=== PATIENT | male | born 1945 | race Caucasian/White ===

== ENCOUNTER 2019-08-06 03:34 | Emergency (ER) | payer MEDICARE, SELFPAY ==
--- NOTE | ~2019-08-06 | XR_ITS ---
EXAMINATION: XR chest 2V DATE: 08/06/2019 04:08 INDICATION: Shortness of breath TECHNIQUE: PA and lateral views of the chest were obtained. COMPARISON: Chest radiograph dated 03/28/2016 FINDINGS: Mildly increased interstitial pattern in the bilateral mid and lower lung zones with a few subtle per ipheral Tresa B-lines at the lateral right lower lung zone. No pleural effusion or pneumothorax. Mil d cardiomegaly. Visualized bones and soft tissues are unremarkable. IMPRESSION: 1. Mild increased interstitial pattern in the mid and lower lung zones most likely mild pulmonary [place] with differential including pneumonia. Reviewed, dictated and finalized at location A. IMPRESSION: 1. Mild increased interstitial pattern in the mid and lower lung zones most lik kisha mild pulmonary edema with differential including pneumonia.
--- NOTE | 2019-08-06 03:40 | ECG_ITS ---
Measurements Intervals [place] Rate: 91 P: RI: 0 QRS: -22 QRSD: 85 T: 16 QT: 324 QTc: 400 Interpretive Statements ATRIAL FIBRILLATION VENTRICULAR PREMATURE COMPLEX BORDERLINE ST ABNORMALITY- ANTEROLATERAL LEADS ABNORMAL ECG Electronically Signed On 08-06-2019 8:02:48 CDT by Michael Petersen D.O.
--- NOTE | 2019-08-06 03:45 | ED.SOB ---
HPI - SOB/Dyspnea General Chief Complaint: Shortness of Breath/Dyspnea Stated Complaint: sob Time Seen by Provider: 08/06/19 03:37 Source: RN notes reviewed History of Present Illness HPI Narrative: Patient presents emergency department from home for shortness of breath. Patient states that he has been having increased shortness of breath over the past 4 days. He states is worse with laying flat and exertion. States that this morning he woke up feeling short of breath approximately 1:30 AM. States he had to sit up at that time and he does have a history of anxiety as well and took an alprazolam. Patient is he has a history of mitral regurgitation as well as a history of atrial fibrillation that was recently diagnosed and started on Eliquis. He denies having any fevers or chills chest pain cough abdominal pain or any other symptoms there is no lower extremity edema. Patient states he is currently on Lasix 60 mg twice daily Related Data Home Medications Medication Instructions Recorded Confirmed PNV,calcium 50-qiha-lsnsz acid tablet 03/21/19 [ Vitamin Plus Low Iron] allopurinol 03/21/19 alprazolam 03/21/19 amlodipine 03/21/19 amlodipine 03/21/19 atorvastatin 03/21/19 furosemide 03/21/19 liothyronine mcg 03/21/19 losartan 03/21/19 metformin mg 03/21/19 potassium chloride meq PO 03/21/19 tamsulosin mg PO 03/21/19 apixaban [Eliquis] mg 08/06/19 metoprolol succinate PO 08/06/19 08/06/19 Allergies Allergy/AdvReac Type Severity Reaction Status Date / Time No Known Allergies Allergy Verified 08/06/19 03:52 Review of Systems Review of Systems: Narrative: Gen.: Denies fevers or chills ENT: Denies congestion Respiratory: See HPI CV: Denies chest pain or palpitations GI: Denies abdominal pain nausea, emesis or diarrhea Musculoskeletal: Denies back pain or muscle pain Neuro: Denies numbness, tingling, weakness or focal weakness Skin: Denies rash Except as documented, all other systems reviewed and negative [facility] Past Medical History Medical History Chronic back pain Congestive heart failure Coronary artery disease Diabetes Fractures Arm and leg Heart valve regurgitation Hypercholesterolemia Hypertension Hypothyroidism Sinusitis Surgical History Surgical History (Updated 03/21/19 @ 13:07 by ESSIE Lazaro) H/O Spinal surgery Fusion L3, L4 and L5 Hx of tonsillectomy Social History Social History (Updated 08/06/19 @ 04:07 by Emeka Atkins, DO) Smoking status: Never smoker Exam Narrative: Exam Narrative: APPEARANCE: No acute distress, nontoxic, resting in bed EYES: EOMI HEENT: Normocephalic, atraumatic, OMM RESPIRATORY: No respiratory distress fine crackles throughout the bilateral lung urbano CARDIOVASCULAR: Regular rate and rhythm with grade 3 out of 6 systolic ejection murmur ABDOMINAL: Soft, nontender, nondistended, no rebound or guarding MUSCULOSKELETAl: Moves all extremities. No clubbing, cyanosis 3+ edema the bilateral lower extremities NEURO: Awake and alert. Following commands, speech normal, no focal deficits SKIN:: Warm, dry. 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 This time recommends patient receive Lasix 40 mg x 1 IV agrees with plan for discharge and they will call the patient this morning for follow-up in the office With walking pulse ox in the emergency department with oxygen saturation staying over 93% the entire time Discussed with patient results of workup and diagnosis. Discussed need for follow-up with primary care, proper use of medication, and reasons to return to the emergency department. Patient understands and agrees to current treatment plan Vital Signs Vital signs: Vital Signs Temperature 97.7 F 08/06/19 03:46 Pulse Rate 110 H 08/06/19
[2019-08-06 03:46] VITALS: BP 145/87; PULSE 110; RESP 16; TEMP 36.5; O2SAT 97
[2019-08-06 03:53] LABS: Basophils Percent Auto 0.4 % (0.2-1.2); Eosinophils Absolute Auto 0.2 K/mm3 (0-0.3); Eosinophils Percent Auto 2.2 % (0-4.4); Hematocrit 32.5 % (42.0-52.0); Hemoglobin 10.5 g/dL (14.0-18.0); Immature Granulocyte Absolute 0.04 K/mm3 (0.00-0.031); Immature Granulocyte Percent A 0.5 % (0-0.5); Lymphocytes Absolute Auto 1.14 K/mm3 (0.9-3.2); Lymphocytes Percent Auto 15.3 % (18.3-44.2); Mean Corpuscular HGB Conc 32.3 g/dl (32-36); Mean Corpuscular Hemoglobin 28.2 pg (26-34); Mean Corpuscular Volume 87.4 fl (80-100); Mean Platelet Volume 10.8 fl (7.4-10.4); Monocytes Absolute Auto 0.5 K/mm3 (0.1-0.6); Monocytes Percent Auto 6.6 % (2.6-8.5); Neutrophils Absolute Auto 5.6 K/mm3 (1.3-6.7); Platelet Count Result 183 k/mm3 (150-375); Red Blood Count 3.72 M/mm3 (4.6-6.20); Red Cell Distribution Width 14.8 % (11.5-14.5); White Blood Count 7.4 K/mm3 (4.5-10.0)
[2019-08-06 04:02] LABS: INR 1.3; Prothrombin Time 15.6 Seconds (11.1-14.7)
[2019-08-06 04:03] LABS: Partial Thromboplastin Time 34.4 SECONDS (22.3-36.8)
[2019-08-06 04:04] LABS: Blood Urea Nitrogen 32 mg/dL (9-20); Calcium 9.2 mg/dL (8.4-10.2); Carbon Dioxide 27 mmol/L (22-30); Chloride 103 mmol/L (98-107); Estimated Glomerular Filt Rate 54; Glucose 119 mg/dL (75-110); Potassium 4.3 mmol/L (3.4-5.0); Sodium 139 mmol/L (137-145)
[2019-08-06 04:16] LABS: NT Pro B Type Natriuretic Pept 1310 PG/ML (5-100); Troponin I < 0.012 ng/mL (0.000-0.034)
[2019-08-06 04:25] VITALS: BP 122/68; PULSE 89; RESP 24; O2SAT 96
--- NOTE | 2019-08-06 04:25 | PC.NURSE ---
walking 02 93%
[2019-08-06] MEDS: FUROSEMIDE INJ 40 MG/4 ML VIAL IV PUSH (04:40)
[2019-08-06 05:43] VITALS: BP 129/69; PULSE 91; RESP 23; O2SAT 94
== END 2019-08-06 05:56 | disposition home or self-care (01) ==
PROVIDERS: Emergency Provider Emergency Medicine
DX: I11.0 Hypertensive heart disease with heart failure (principal); I50.9 Heart failure, unspecified; I25.10 Atherosclerotic heart disease of native coronary artery without angina pectoris; E11.9 Type 2 diabetes mellitus without complications; E78.00 Pure hypercholesterolemia, unspecified; E03.9 Hypothyroidism, unspecified; I38 Endocarditis, valve unspecified; Z98.1 Arthrodesis status; Z79.01 Long term (current) use of anticoagulants; Z79.84 Long term (current) use of oral hypoglycemic drugs; I48.91 Unspecified atrial fibrillation; I49.3 Ventricular premature depolarization; R94.31 Abnormal electrocardiogram [ECG] [EKG]
CPT/HCPCS: 36415; 71046; 80048; 83880; 84484; 85025; 85610; 85730; 93005; 96374; 99284; J1940

== ENCOUNTER 2020-04-29 18:00 | Outpatient (RCR) | payer MEDICARE, SELFPAY ==
[2020-01-31 08:54] VITALS: PULSE 75; RESP 14; TEMP 36.5; O2SAT 98
== END 2020-04-29 18:57 | disposition home or self-care (01) ==
LOC: ANHCPREHAB 18:00
DX: Z48.812 Encounter for surgical aftercare following surgery on the circulatory system (principal)
CPT/HCPCS: 93798

== ENCOUNTER 2021-05-15 17:24 | Emergency (ER) | payer MEDICARE, SELFPAY ==
--- NOTE | ~2021-05-15 | CT_ITS ---
EXAMINATION: CT lumbar spine wo con DATE: 05/15/2021 19:52 INDICATION: Low back pain TECHNIQUE: Computed tomography (CT) of the lumbar spine was performed without intravenous contrast. T he dose-length product (DLP) was 1131.85 mGy-cm. Iterative reconstruction was used. COMPARISON: None FINDINGS: There are changes of anterior and posterior fusion from L3 through L5. Bone alignment is no rmal. There is no fracture. There is severe loss of intervertebral disc space height at L2-3 and mode rate loss of disc space height at L1-2. There is a partially imaged cyst of the right kidney measurin g up to 8 cm. There is a 4 mm nonobstructing stone of the right kidney. IMPRESSION: 1. Changes of anterior and posterior fusion from L3 through L5 and severe lumbar spondylosis without acute findings. Reviewed, dictated and finalized at location F. TESTER IMPRESSION: 1. Changes of anterior and posterior fusion from L3 through L5 and severe lumba r spondylosis without acute findings.
--- NOTE | ~2021-05-15 | CT_ITS ---
EXAMINATION: CT brain wo con INDICATION: Head injury COMPARISON: None TECHNIQUE: Standard unenhanced head CT. The dose-length product (DLP) was 605.33 mGy-cm. The mA was a djusted according to patient size. Iterative reconstruction technique was employed. FINDINGS: There is no acute intraparenchymal hemorrhage. No evidence of mass lesion. No evidence of a cute infarction. There is moderate periventricular and subcortical hypodensity probably related to sm all vessel ischemic disease. There is mild prominence of the sulci and ventricles related to cerebral atrophy. Intracranial calcified cerebral atherosclerosis is noted. There are no extra-axial collecti ons. There is no mass effect or midline shift. The orbits and soft tissues are unremarkable. There is mild mucosal thickening of the paranasal sinuses. IMPRESSION: 1. No acute intracranial abnormality. 2. Age related findings. Reviewed, dictated and finalized at location F. ANESTHETIST
[2021-05-15 17:27] VITALS: BP 144/68; PULSE 73; RESP 16; TEMP 35.6; O2SAT 93
--- NOTE | 2021-05-15 18:27 | ED.FALL ---
HPI - Fall General Chief Complaint: Fall Stated Complaint: fall/back pn previous fusion Time Seen by Provider: 05/15/21 17:52 Source: patient and RN notes reviewed History of Present Illness HPI Narrative: 76-year-old male presenting to the emergency department for evaluation of a head injury and back pain after having a fall down a 10 foot embankment. Patient was walking in his yard slipped on some ice and slid down an embankment. Patient states he did strike his head of the right posterior lateral aspect. Patient denies any loss of consciousness. Patient does have abrasions to his right lower knee and some abrasions to his back. Patient does have prior history of L3-L5 fusion and does report some lower back pain today. Related Data Home Medications Medication Instructions Recorded Confirmed torsemide 20 mg PO BID 01/31/20 01/31/20 PNV,calcium 66-[id number]-ncxov acid tablet 05/15/21 [M-Yuliana Plus] allopurinol 05/15/21 05/15/21 atorvastatin 05/15/21 bupropion HCl mg PO 05/15/21 carvedilol 05/15/21 escitalopram oxalate mg 05/15/21 potassium chloride meq PO 05/15/21 sacubitril-valsartan [Entresto] 05/15/21 spironolactone 05/15/21 tamsulosin mg PO 05/15/21 torsemide mg 05/15/21 Allergies Allergy/AdvReac Type Severity Reaction Status Date / Time No Known Allergies Allergy Verified 05/15/21 17:50 Review of Systems Review of Systems: CONSTITUTIONAL: Denies fever, chills, or sweats. EYES: Denies visual changes, redness, or discharge. ENT: Denies rhinorrhea, congestion, sore throat, or otalgia. CARDIOVASCULAR: Denies chest pain, palpitations, or edema. RESPIRATORY: Denies cough or dyspnea. GASTROINTESTINAL: Denies abdominal pain, nausea, vomiting, or diarrhea. GENITOURINARY: Denies dysuria or hematuria. SKIN: Multiple abrasions MUSCULOSKELETAL: Low back pain NEUROLOGIC: Denies headache, numbness, or weakness. PSYCHIATRIC: Denies anxiety or depression. [facility] Past Medical History Medical History (Updated 05/15/21 @ 20:24 by Albert Christianson MD) Chronic back pain Congestive heart failure Coronary artery disease Diabetes Fractures Arm and leg Heart valve regurgitation Hypercholesterolemia Hypertension Hypothyroidism Sinusitis Surgical History Surgical History (Updated 03/21/19 @ 13:07 by ESSIE Lazaro) H/O Spinal surgery Fusion L3, L4 and L5 Hx of tonsillectomy Family History Family History (Updated 01/31/20 @ 08:29 by Yissel Gonzalez RN) Mother Congestive heart failure Thyroid disease Father Prostate carcinoma Sibling CAD (coronary artery disease) Hypertension Social History Social History (Updated 08/06/19 @ 04:07 by Emeka Atkins DO) Smoking packs per day: 1 Smoking cigarettes per day: 20.0 Years smoked: 37 Smoking pack-years: 37.00 Smoking status: Former smoker Tobacco type: cigarettes and cigars Additional smoking assessment comments: also smoked Exam Narrative: APPEARANCE: Well appearing, no pain, no distress, well-nourished. HEAD: normocephalic, atraumatic. EYES: PERRLA/EOMI, conjunctivae clear. NOSE: Normal no drainage NECK: Supple. No adenopathy, no masses. RESPIRATORY: Airway patent, respirations nonlabored. Clear to auscultation bilaterally, no rales, rhonchi, wheezing. CARDIOVASCULAR: Regular rate and rhythm without murmurs rubs or gallops. ABDOMINAL: Soft, nontender, nondistended, normal bowel sounds MUSCULOSKELETAL: Minimal lower back tenderness to palpation. Abrasion over midline spine. NEURO: Alert. Cranial nerves II through XII intact. Good gait. Good coordination SKIN: Abrasion on right knee. Course Course Emergency Course: Patient was updated on the results of his CT imaging. Patient was able to ambulate at his baseline without issue. All questions concerns were addressed. Patient was in no distress at time of discharge from the emergency department. Patient was encouraged to have close follow-up with his
[2021-05-15 19:15] VITALS: BP 151/78; PULSE 68; RESP 14; O2SAT 97
== END 2021-05-15 20:37 | disposition home or self-care (01) ==
PROVIDERS: Emergency Provider Emergency Medicine
DX: S80.211A Abrasion, right knee, initial encounter (principal); S30.810A Abrasion of lower back and pelvis, initial encounter; S09.90XA Unspecified injury of head, initial encounter; S39.92XA Unspecified injury of lower back, initial encounter; I50.9 Heart failure, unspecified; I25.10 Atherosclerotic heart disease of native coronary artery without angina pectoris; E11.9 Type 2 diabetes mellitus without complications; E78.00 Pure hypercholesterolemia, unspecified; I11.0 Hypertensive heart disease with heart failure; E03.9 Hypothyroidism, unspecified; I38 Endocarditis, valve unspecified; Z98.1 Arthrodesis status; Z87.891 Personal history of nicotine dependence; M47.816 Spondylosis without myelopathy or radiculopathy, lumbar region; W00.2XXA Other fall from one level to another due to ice and snow, initial encounter
CPT/HCPCS: 70450; 72131; 99284

== ENCOUNTER 2021-05-18 08:50 | Emergency (ER) | payer MEDICARE, SELFPAY ==
--- NOTE | ~2021-05-18 | XR_ITS ---
XR shoulder LT min 2V 05/18/2021 10:32 Indication: Left shoulder pain after recent fall Procedure: 4 views left shoulder Comparison: No prior studies for comparison. Findings: There is mild polyarticular osteoarthritis. No fracture, subluxation or dislocation. There are median sternotomy wires. There is a prosthetic heart valve. No significant soft tissue abnormalit y. No foreign bodies. Impression: 1: No acute fracture. Reviewed, dictated and finalized at location A. WARE DEVELOPMENT MANAGER Impression: 1: No acute fracture.
--- NOTE | ~2021-05-18 | XR_ITS ---
XR finger 1st LT min 2V 05/18/2021 11:57 INDICATION: Left first finger pain after recent fall PROCEDURE: 3 views left first finger COMPARISON: No prior studies for comparison. FINDINGS: Fracture, dislocation or subluxation is not identified. There is polyarticular osteoarthrit is. The soft tissues appear within normal limits. No foreign bodies are identified. IMPRESSION: 1: NO ACUTE BONE OR JOINT ABNORMALITY IDENTIFIED. Reviewed, dictated and finalized at location A. RAM MANAGER RN
[2021-05-18 09:05] VITALS: BP 141/65; PULSE 62; RESP 16; TEMP 36.1; O2SAT 100
--- NOTE | 2021-05-18 10:08 | ED.UPPEXIN ---
HPI - Extremity Injury (Upper) General Chief Complaint: Extremity Injury, Upper Stated Complaint: left shoulder pain Time Seen by Provider: 05/18/21 09:57 Source: patient Mode of arrival: ambulatory Limitations: no limitations History of Present Illness HPI narrative: This is a 76-year-old male that presents to the emergency department for left shoulder pain after an injury 3 days ago. Reports he fell down a hill in his yard. He was evaluated for this here in the emergency department, had scans of his brain and lumbar spine that were without acute findings. Reports initially he did not notice the pain in his shoulder as well. Now has had left shoulder pain that is worse with movement and relieved with rest. He especially noted it last night when he was trying to sleep. Denies decreased range of motion, erythema, edema, or numbness. Related Data Home Medications Medication Instructions Recorded Confirmed torsemide 20 mg PO BID 01/31/20 01/31/20 PNV,calcium [id number]-tmfaa acid tablet 05/15/21 [M- Plus] allopurinol 05/15/21 05/15/21 atorvastatin 05/15/21 bupropion HCl mg PO 05/15/21 carvedilol 05/15/21 escitalopram oxalate mg 05/15/21 potassium chloride meq PO 05/15/21 sacubitril-valsartan [Entresto] 05/15/21 spironolactone 05/15/21 tamsulosin mg PO 05/15/21 torsemide mg 05/15/21 Allergies Allergy/AdvReac Type Severity Reaction Status Date / Time No Known Allergies Allergy Verified 05/15/21 17:50 Review of Systems Review of Systems: CONSTITUTIONAL: Denies fever MUSCULOSKELETAL: Reports joint pain, and myalgia. NEUROLOGIC: Denies numbness All systems reviewed & are unremarkable except as noted in HPI and below PMFSH Past Medical History Medical History (Updated 05/18/21 @ 12:17 by Diamante Gonzalez PA-C) Chronic back pain Congestive heart failure Coronary artery disease Diabetes Fractures Arm and leg Heart valve regurgitation Hypercholesterolemia Hypertension Hypothyroidism Sinusitis Surgical History Surgical History (Updated 03/21/19 @ 13:07 by ESSIE Lazaro) H/O Spinal surgery Fusion L3, L4 and L5 Hx of tonsillectomy Family History Family History (Updated 01/31/20 @ 08:29 by Yissel Gonzalez RN) Mother Congestive heart failure Thyroid disease Father Prostate carcinoma Sibling CAD (coronary artery disease) Hypertension Social History Social History (Updated 08/06/19 @ 04:07 by Emeka Atkins DO) Smoking packs per day: 1 Smoking cigarettes per day: 20.0 Years smoked: 37 Smoking pack-years: 37.00 Smoking status: Former smoker Tobacco type: cigarettes and cigars Additional smoking assessment comments: also smoked Exam Narrative: GENERAL: Well-appearing, well-nourished, and in no acute distress. HEAD: Normocephalic, atraumatic. EYES: EOMI. CHEST: No respiratory distress. HEART: Regular rate EXTREMITIES: Normal range of motion. Pain with active range of motion in the left shoulder above 90 degrees. No edema or obvious deformity. Normal radial pulses. Normal sensation SKIN: Warm, dry, no rash. NEURO: No focal deficits. Alert and oriented x3. PSYCH: Normal mood and affect Course Vital Signs Vital signs: Vital Signs Temperature 97.0 F L 05/18/21 09:05 Pulse Rate 62 05/18/21 09:05 Respiratory Rate 16 05/18/21 09:05 Blood Pressure 141/65 H 05/18/21 09:05 Pulse Oximetry 100 05/18/21 09:05 Temperature 97.0 F L 05/18/21 09:05 Pulse Rate 65 05/18/21 12:00 Respiratory Rate 14 05/18/21 12:00 Blood Pressure 151/88 H 05/18/21 12:00 Pulse Oximetry 99 05/18/21 12:00 MDM - Extremity Injury (Upper) MDM Narrative Medical decision making narrative: Patient presents to the emergency department after a fall a couple of days ago. Was previously evaluated for this at our facility. Had CT scans of the brain and lumbar spine that were without acute findings. Today he presents as he states
[2021-05-18 12:00] VITALS: BP 151/88; PULSE 65; RESP 14; O2SAT 99
[2021-05-18 12:40] VITALS: BP 141/78; PULSE 65; RESP 18; O2SAT 99
== END 2021-05-18 12:41 | disposition home or self-care (01) ==
PROVIDERS: Emergency Provider Emergency Medicine
DX: S49.92XA Unspecified injury of left shoulder and upper arm, initial encounter (principal); I50.9 Heart failure, unspecified; I11.0 Hypertensive heart disease with heart failure; I25.10 Atherosclerotic heart disease of native coronary artery without angina pectoris; E11.9 Type 2 diabetes mellitus without complications; E78.00 Pure hypercholesterolemia, unspecified; E03.9 Hypothyroidism, unspecified; I38 Endocarditis, valve unspecified; Z98.1 Arthrodesis status; Z87.891 Personal history of nicotine dependence; W17.81XA Fall down embankment (hill), initial encounter
CPT/HCPCS: 73030; 73140; 99284

== ENCOUNTER 2021-09-08 13:17 | Emergency (ER) | payer MEDICARE, SELFPAY ==
[2021-09-08] VITALS (29 sets, daily range): BP systolic 70–130; BP diastolic 37–70; PULSE 54–78; RESP 12–24; O2SAT 97–100
--- NOTE | ~2021-09-08 | CT_ITS ---
EXAMINATION: CT brain wo con DATE: 09/08/2021 14:35 INDICATION: Dizziness. TECHNIQUE: Computed tomography (CT) of the head was performed without intravenous contrast. The mA wa s adjusted according to patient size. Iterative reconstruction technique was employed. The dose-lengt h product was 605.33 mGy-cm. COMPARISON: Head CT 05/15/2021 FINDINGS: There is no intracranial hemorrhage, acute infarction, or abnormal intracranial mass lesion . The ventricles are normal in size. There is mild mucosal thickening in the paranasal sinuses. The m astoid air cells are normal. There are likely changes of ocular lens replacement surgeries. IMPRESSION: 1. Normal brain. Reviewed, dictated and finalized at location A. IMPRESSION: 1. Normal brain.
--- NOTE | ~2021-09-08 | US_ITS ---
EXAMINATION: US carotid duplex BI DATE: 09/08/2021 15:46 INDICATION: Cerebral atherosclerosis presenting with dizziness. TECHNIQUE: Grayscale, color Doppler, and pulsed Doppler images of the cervical carotid arteries were obtained. The degree of vessel stenosis is placed in one of the following categories: normal, <50%, 5 0-69%, >=70% but less than near-occlusion, near-occlusion, or total occlusion. Note that percent sten osis relative to normal distal artery lumen diameter is indirectly measured from velocity measurement s as described by Michael, et al. Radiology 2003; [id number]. COMPARISON: None. FINDINGS: RIGHT: The right common carotid artery (CCA) peak systolic velocity (PSV) is 68 cm/s. The right internal car otid artery (ICA) PSV is 77 cm/s. The right ICA end-diastolic velocity (EDV) is 23 cm/s. The right IC A/CCA PSV ratio is 1.1. Grayscale and color Doppler images yield an estimate of <50% diameter reducti on from plaque in the ICA. The external carotid artery (ECA) PSV is 115 cm/s. There is antegrade flow in the right vertebral artery. LEFT: The left CCA PSV is 86 cm/s. The left ICA PSV is 73 cm/s. The left ICA EDV is 19 cm/s. The left ICA/C CA PSV ratio is 0.9. Grayscale and color Doppler images yield an estimate of <50% diameter reduction from plaque in the ICA. The ECA PSV is 106 cm/s. There is antegrade flow in the left vertebral artery . IMPRESSION: 1. <50% stenosis in the right internal carotid artery. 2. <50% stenosis in the left internal carotid artery. Reviewed, dictated and finalized at location B.
--- NOTE | ~2021-09-08 | XR_ITS ---
EXAMINATION: XR chest 1V INDICATION: Dizziness TECHNIQUE: AP view of the chest is obtained. COMPARISON: 08/06/2019 FINDINGS: There is a mild diffuse interstitial pattern. The lungs are free of focal airspace opacitie s. No pleural effusion or pneumothorax. Cardiomegaly is noted. There are changes of cardiac valve connor yasmin. IMPRESSION: 1. Mild diffuse interstitial pattern, consistent with pulmonary edema versus pneumonia. Reviewed, dictated and finalized at location A. IMPRESSION: 1. Mild diffuse interstitial pattern, consistent with pulmonary edema versus pn eumonia.
--- NOTE | 2021-09-08 13:31 | ECG_ITS ---
Measurements Intervals [place] Rate: 66 P: [place]: 160 QRS: 66 QRSD: 89 T: 75 QT: 389 QTc: 409 Interpretive Statements SINUS RHYTHM NONSPECIFIC ST ABNORMALITY BORDERLINE ECG COMPARED TO ECG 08/06/2019 03:41:11 SINUS RHYTHM IS NOT PRESENT Electronically Signed On 09-08-2021 14:58:58 CDT by Jorge Hassan M.D.
[2021-09-08 13:51] LABS: Basophils Percent Auto 0.4 % (0.2-1.2); Eosinophils Absolute Auto 0.1 K/mm3 (0-0.3); Eosinophils Percent Auto 1.9 % (0-4.4); Hematocrit 36.8 % (42.0-52.0); Hemoglobin 12.3 g/dL (14.0-18.0); Immature Granulocyte Absolute 0.01 K/mm3 (0.00-0.031); Immature Granulocyte Percent A 0.1 % (0-0.5); Immature Platelet Fraction Pct 4.3 % (0.9-11.2); Lymphocytes Absolute Auto 1.18 K/mm3 (0.9-3.2); Lymphocytes Percent Auto 16.9 % (18.3-44.2); Mean Corpuscular HGB Conc 33.4 g/dl (32-36); Mean Corpuscular Hemoglobin 30.7 pg (26-34); Mean Corpuscular Volume 91.8 fl (80-100); Mean Platelet Volume 10.6 fl (7.4-10.4); Monocytes Absolute Auto 0.4 K/mm3 (0.1-0.6); Monocytes Percent Auto 5.9 % (2.6-8.5); Neutrophils Absolute Auto 5.2 K/mm3 (1.3-6.7); Neutrophils Percent Auto 74.8 % (45.5-73.1); Platelet Count Result 149 k/mm3 (150-375); Red Blood Count 4.01 M/mm3 (4.6-6.20); Red Cell Distribution Width 14.3 % (11.5-14.5)
--- NOTE | 2021-09-08 14:00 | ED.DIZZY ---
HPI - Dizziness General Chief Complaint: Dizziness Stated Complaint: Dizzy Time Seen by Provider: 09/08/21 13:45 Source: RN notes reviewed History of Present Illness HPI Narrative: Patient presents emergency department from home for dizziness. Patient states he is having intermittent episodes of dizziness for the past 2 weeks. He states that dizziness occurs never he has to bend over or bend down which he says he does frequently because he has a small dog he states that when this happens he will feel like the room spinning or like he may pass out states that improves once he is able to lay down flat and raise his legs he denies any dizziness currently laying in bed he denies any fevers or chills, chest pain shortness of breath denies numbness tingling or weakness of the extremities. The patient does states that he had a ultrasound of his neck done approximately a year ago and a traveling health screening facility that had showed some stenosis of his carotid arteries states he has had no follow-up since that time Related Data Home Medications Medication Instructions Recorded Confirmed torsemide 20 mg tablet 20 mg PO BID 01/31/20 01/31/20 allopurinol 300 mg tablet 05/15/21 05/15/21 atorvastatin 40 mg tablet 05/15/21 bupropion HCl 150 mg 24 hr tablet, mg PO 05/15/21 extended release carvedilol 3.125 mg tablet 05/15/21 escitalopram oxalate 20 mg tablet mg 05/15/21 potassium chloride 20 mEq meq PO 05/15/21 tablet,extended release vitamin with calcium tablet 05/15/21 no.72-iron 27 mg-folic acid 1 mg tablet (M- Plus) sacubitril 49 mg-valsartan 51 mg 05/15/21 tablet (Entresto) spironolactone 25 mg tablet 05/15/21 tamsulosin 0.4 mg capsule mg PO 05/15/21 torsemide 20 mg tablet mg 05/15/21 Allergies Allergy/AdvReac Type Severity Reaction Status Date / Time No Known Allergies Allergy Verified 09/08/21 13:53 Review of Systems Review of Systems: Gen.: Denies fevers or chills Eyes: Denies eye pain or visual change ENT: Denies congestion Respiratory: Denies shortness of breath or cough CV: Denies chest pain or palpitations GI: Denies abdominal pain nausea, emesis or diarrhea Musculoskeletal: Denies back pain or muscle pain Neuro: See HPI Skin: Denies rash Except as documented, all other systems reviewed and negative [facility] Past Medical History Medical History Chronic back pain Congestive heart failure Coronary artery disease Diabetes Fractures Arm and leg Heart valve regurgitation Hypercholesterolemia Hypertension Hypothyroidism Sinusitis Surgical History Surgical History (Updated 03/21/19 @ 13:07 by ESSIE Lazaro) H/O Spinal surgery Fusion L3, L4 and L5 Hx of tonsillectomy Family History Family History (Updated 01/31/20 @ 08:29 by Yissel Gonzalez RN) Mother Congestive heart failure Thyroid disease Father Prostate carcinoma Sibling CAD (coronary artery disease) Hypertension Social History Social History Smoking packs per day: 1 Smoking cigarettes per day: 20.0 Years smoked: 37 Smoking pack-years: 37.00 Smoking status: Former smoker Tobacco type: cigarettes and cigars Additional smoking assessment comments: also smoked Exam Narrative: APPEARANCE: No acute distress, nontoxic, resting in bed HEENT: Normocephalic, atraumatic, OMM, TMs clear bilaterally EYES: PERRL, EOMI NECK: Supple, nontender, full range of motion without pain, no meningismus RESPIRATORY: No respiratory distress, clear to auscultation bilaterally with no rhonchi wheezing or rales CARDIOVASCULAR: RRR s murmur ABDOMINAL: Soft, nontender, nondistended MUSCULOSKELETAL: Moves all extremities. No clubbing, cyanosis or edema. NEURO: A and O ?3, following commands, speech normal, cranial nerves II through XII grossly intact,muscle strength 5 out of 5
[2021-09-08 14:03] LABS: Alanine Aminotransferase 24 U/L (6-50); Albumin Level 4.4 g/dL (3.5-5.1); Alkaline Phosphatase 60 U/L (38-126); Anion Gap 8 mmol/L (8-16); Aspartate Amino Transferase 33 U/L (17-59); Bilirubin,Total 0.9 mg/dL (0.2-1.3); Blood Urea Nitrogen 36 mg/dL (9-20); Calcium 9.3 mg/dL (8.4-10.2); Carbon Dioxide 26 mmol/L (22-30); Chloride 106 mmol/L (98-107); Estimated CRCL calculation 33 ml/min; Estimated Glomerular Filt Rate 39; Glucose 151 mg/dL (65-110); Potassium 4.4 mmol/L (3.4-5.0); Sodium 140 mmol/L (137-145)
[2021-09-08 14:41] LABS: INR 1.1; Partial Thromboplastin Time 32.4 SECONDS (22.3-36.8); Prothrombin Time 13.4 Seconds (11.1-14.7)
[2021-09-08 14:45] LABS: Troponin I < 0.012 ng/mL (0.000-0.034)
[2021-09-08 15:58] LABS: Appearance Urine Clear (Clear); Bilirubin Urine Negative (Negative); Blood Urine Negative (Negative); Color Urine Yellow (Yellow); Glucose Urine UA Negative (Negative); Ketones Urine Negative (Negative); Leukocyte Esterase Ur Negative LEU/UL (Negative); Nitrate Urine Negative (Negative); Protein Urine Negative (Negative); Specific Grav Ur 1.015 (1.001-1.035); Urobilinogen Urine 0.2 mg/dL (<2.0)
[2021-09-08 16:06] LABS: Add Urine Microscopic? NO
[2021-09-08] MEDS: SODIUM CHLORIDE 0.9% IV 1,000 ML 999 ML IV CONT (16:10)
[2021-09-08 17:49] LABS: NT Pro B Type Natriuretic Pept 290 pg/mL (5-100)
== END 2021-09-08 18:58 | disposition home or self-care (01) ==
PROVIDERS: Emergency Medicine; Emergency Provider Emergency Medicine
DX: R42 Dizziness and giddiness (principal); I95.1 Orthostatic hypotension; I11.0 Hypertensive heart disease with heart failure; I50.9 Heart failure, unspecified; E11.9 Type 2 diabetes mellitus without complications; E03.9 Hypothyroidism, unspecified
CPT/HCPCS: 36415; 70450; 71045; 80053; 81003; 83880; 84484; 85025; 85055; 85610; 85730; 93005; 93880; 96360; 99284; J7030

== ENCOUNTER 2021-12-06 12:30 | Outpatient (RCR) | payer MEDICARE, SELFPAY ==
--- NOTE | 2021-11-25 14:46 | PTOPEVDC ---
Thank you for referring Rafi De Souza to [facility].? An evaluation has been completed. No further treatment is needed. Evaluation Information Assessment Status Evaluation Diagnosis muscular atrophy Subjective Information Reports walks every day with his dog Reported Pain Level Pain Score 0: Self Report Assessment PT Clinical Summary Pt presents w/ dx of mild muscular atrophy. Verbalizes dislike of his pec area and arms with his droopy skin. Pt reports he walks his dog a lot and has a fit bit style wrist band that counts his steps. Evaluation show great mobility, normal gait without deficits in speed, balance, or style , very good strength in BLEs and arms as well as in core. Balance testing shows mild to no impairments in static and dynamic balance with only mild deficits with small base of support ( tandem and single leg stance) and with eyes closed . However during evaluation pt noted his recent Alzheimer's dx, was noted to have significant difficulty with word finding, self-reports of short term memory issues, and is noted to repeat previous statements multiple times. He was also noted to have difficulty with multistep instructions, tangential in answering questions, and arrived at wrong appointment time twice today. Pt does not currently appear to require skilled physical therapy services vs exercise classes and/ or first aid trainer to meet his goals. However, he would likely benefit greatly from Speech therapy in order to improve word finding, use of recall and memory techniques, and improve focus. Plan of Care Interventions Other Other Interventions Eval only PT Services Indicated No
--- NOTE | 2021-12-06 14:22 | STOPEVDC ---
Assessment and note entered by Martha Rousseau WAITER/WAITRESS Thank you for referring Rafi De Souza to [facility].? An evaluation has been completed. No further treatment is needed. 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 He finally was ready to focus on the evaluation tasks but frequently stopped to tell a story after each question/direction that was presented and therapist frequently had to call patient back to task. It was noted that when a stimulus was either lengthy or more complex, or both, patient tended to avoid the task with a story. When therapist stopped him from telling his story and encouraged focus and attention using verbal/visual cues, patient was better able to concentrate and be successful. This indicates that patient does have the knowledge and ability to recall, comprehend, and analyze verbal information however his focus and attention to detail are impaired. When the purpose of Speech Therapy was described to the patient he expressed no interest in participating in direct Speech Therapy tasks; he voiced understanding of recommendations to follow strategies to assist with recall such as creating a habit (always putting phone in the same place at home), repetition (repeating new information aloud), and writing down appointments and other important pieces of information on calendar or in notebook. He is being discharged with no additional Speech Therapy recommended.
== END 2021-12-07 08:32 | disposition home or self-care (01) ==
LOC: ANHST 12:30
DX: M62.50 Muscle wasting and atrophy, not elsewhere classified, unspecified site (principal); G30.9 Alzheimer's disease, unspecified; R41.840 Attention and concentration deficit
CPT/HCPCS: 92523; 97161

== ENCOUNTER 2022-03-28 14:36 | Emergency (ER) | payer MEDICARE, SELFPAY ==
[2022-03-28 14:42] VITALS: BP 137/70; PULSE 58; RESP 14; TEMP 36.3; O2SAT 98
--- NOTE | 2022-03-28 15:09 | ED.GENADULT ---
HPI - General Adult General Chief complaint: Extremity Injury, Upper Stated complaint: hit hand on shahida nail Time Seen by Provider: 03/28/22 14:49 Source: RN notes reviewed History of Present Illness HPI narrative: Patient presents emergency department from home for left hand wound. Patient states just prior to arrival he was taking apart an item and hit his left hand with a shahida nail and sustained a small wound over his left dorsal hand he states was directly over one of his veins and he was concerned and came to the ER for further evaluation unsure of his last tetanus shot he states mild bleeding from the wound he denies any other trauma or injury states he is not actually smacked his hand against the nail and does not have actual hand pain just concerned about the wounds denies any numbness or tingling Related Data Home Medications Medication Instructions Recorded Confirmed torsemide 20 mg tablet 20 mg PO BID 01/31/20 01/31/20 allopurinol 300 mg tablet 05/15/21 05/15/21 atorvastatin 40 mg tablet 05/15/21 bupropion HCl 150 mg 24 hr tablet, mg PO 05/15/21 extended release carvedilol 3.125 mg tablet 05/15/21 escitalopram oxalate 20 mg tablet mg 05/15/21 potassium chloride 20 mEq meq PO 05/15/21 tablet,extended release vitamin with calcium tablet 05/15/21 no.72-iron 27 mg-folic acid 1 mg tablet (M- Plus) sacubitril 49 mg-valsartan 51 mg 05/15/21 tablet (Entresto) spironolactone 25 mg tablet 05/15/21 tamsulosin 0.4 mg capsule mg PO 05/15/21 torsemide 20 mg tablet mg 05/15/21 Allergies Allergy/AdvReac Type Severity Reaction Status Date / Time No Known Allergies Allergy Verified 09/08/21 13:53 Review of Systems Review of Systems: Gen.: Denies fevers or chills Musculoskeletal: Denies hand pain Neuro: Denies numbness, tingling, weakness Skin: See HPI Endo: Denies DM PMFSH Past Medical History Medical History Chronic back pain Congestive heart failure Coronary artery disease Diabetes Fractures Arm and leg Heart valve regurgitation Hypercholesterolemia Hypertension Hypothyroidism Sinusitis Surgical History Surgical History (Updated 03/21/19 @ 13:07 by ESSIE Lazaro) H/O Spinal surgery Fusion L3, L4 and L5 Hx of tonsillectomy Family History Family History (Updated 01/31/20 @ 08:29 by Yissel Gonzalez RN) Mother Congestive heart failure Thyroid disease Father Prostate carcinoma Sibling CAD (coronary artery disease) Hypertension Social History Social History Smoking packs per day: 1 Smoking cigarettes per day: 20.0 Years smoked: 37 Smoking pack-years: 37.00 Smoking status: Former smoker Tobacco type: cigarettes and cigars Additional smoking assessment comments: also smoked Exam Narrative: APPEARANCE: No acute distress, nontoxic, resting in bed Eyes: EOMI HEENT: Normocephalic, atraumatic, RESPIRATORY: No respiratory distress MUSCULOSKELETAl: Left dorsal hand with a small skin tear present no active bleeding no signs of infection full flexion-extension of all 5 MCP and IP joints, radial pulse 2+ neurovascular intact no hand tenderness NEURO: Awake and alert. Following commands, speech normal, no focal deficits SKIN:: Warm, dry. Normal Color no rash or lesions Course Course Emergency Course: Reviewed old records patient with last tetanus shot 05/17/2017 Discussed with patient results of workup and diagnosis. Discussed need for follow-up with primary care, proper use of medication, and reasons to return to the emergency department. Patient understands and agrees to current treatment plan Vital Signs Vital signs: Vital Signs Temperature 97.4 F L 03/28/22 14:42 Pulse Rate 58 L 03/28/22 14:42 Respiratory Rate 14 03/28/22 14:42 Blood Pressure 137/70 03/28/22 14:42 Pulse Oximetry 98 01/0
== END 2022-03-28 15:50 | disposition home or self-care (01) ==
PROVIDERS: Emergency Provider Emergency Medicine
DX: S61.412A Laceration without foreign body of left hand, initial encounter (principal); I50.9 Heart failure, unspecified; I11.0 Hypertensive heart disease with heart failure; I25.10 Atherosclerotic heart disease of native coronary artery without angina pectoris; E11.9 Type 2 diabetes mellitus without complications; E78.00 Pure hypercholesterolemia, unspecified; I38 Endocarditis, valve unspecified; E03.9 Hypothyroidism, unspecified; Z98.1 Arthrodesis status; Z87.891 Personal history of nicotine dependence; W22.8XXA Striking against or struck by other objects, initial encounter
CPT/HCPCS: 99282